=== PATIENT | male | born 1985 | race Two or more races ===

== ENCOUNTER 2018-05-18 00:24 | Emergency (ER) | payer MEDICAID ==
[~2018-05-18] VITALS: Ht 177.8 cm; Wt 168.7 kg
[2018-05-18 00:48] VITALS: BP 175/72
[2018-05-18] MEDS ORDERED: methylPREDNISolone SOD SUCC 125 MG/2 ML VL IM ONE (04:15)
[2018-05-18] MEDS ORDERED: FLUCONAZOLE 100 MG TAB PO ONE (04:15)
[2018-05-18] MEDS ORDERED: NYSTATIN (MOUTH-THROAT) 500,000 UNITS/5 ML SUSP MT ONE (04:15)
[2018-05-18] MEDS ORDERED: cefTRIAXone SOD 1,000 MG VL IM ONE (04:15)
== END 2018-05-18 05:00 | disposition home or self-care (01) ==
LOC: ER 00:34
DX: B37.0 Candidal stomatitis (principal)
CPT/HCPCS: 82962; 96372; 99283; J0696; J2930